=== PATIENT | male | born 1975 | race Caucasian/White ===

== ENCOUNTER → 2016-11-22 | Outpatient (CLI) | payer MEDICAID ==
[~2016-11-22] MED LIST: AMLODIPINE BES10 MG PO; BUPROPION HCL200 M1 PO; BUSPIRONE HCL15 MG PO; CYCLOBENZAPRINE10 M1 PO; HYDROXYZINE PAM50 MG PO; KEFLEX 500MG.500 MG PO; LOPRESSOR 25MG.25 MG PO; LORTAB 5/500 501 TAB PO; PROMETHAZINE12.5 M1 PO; RANITIDINE 150150 MG PO; SERTRALINE 100100 MG PO; VICODIN 5/500 T1 TAB PO; VOLTAREN75 MG PO
== END ==
LOC: RT 12:47
DX: J44.9 Chronic obstructive pulmonary disease, unspecified (principal)

== ENCOUNTER 2017-07-19 15:54 | Observation (INO) | payer MEDICAID ==
[~2017-07-19] VITALS: Ht 170.2 cm; Wt 103.6 kg
[2017-07-19] MEDS ORDERED: GABAPENTIN300 MG PO (16:01)
[2017-07-19 16:20] LABS: LYMPH # 3.6 K/mm3 (0.7-4.5); LYMPH % 24.6 % (10-50)
[2017-07-19 16:23] LABS: HEMOGLOBIN 15.1 g/dL (14.1-18.0)
--- NOTE | 2017-07-19 16:26 | Emergency Room Report ---
History of Present Illness Time Seen by [id number] Presenting Problem in Triage Pt arrived:Walked Presenting Problem:CHEST PAIN BEGAN 1 WEEK AGO, SAW DR. 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 N Clinical Suspician of Infection? N Mental Status: 1 - Regular (Normal Baseline) Sepsis Risk:Possible Sepsis Risk Have you (or family members/close friends) recently traveled outside the [place]? N If Yes, where/when: Have you had exposure to infectious disease within the past month? N TB? Other? Specify: Patient reports progressive BONILLA when walking up steeps, seems worse over the past week; sent to ED by PCP for further evaluation. Reports leg edema bilaterally x one month w/o claudication. No fever or sputum production; reports remote hx of [place], states had an abnormal stress test in his 20's; has heavy tob use; has HTN but denies hyperlipidemia; not diabetic. No fever or cough. PCP has requested evaluation with admission and has already consulted cardiology service per report relayed to this MD by our staff, who received a courtesy call prior to patient arrival. ALLERGIES Coded Allergies: penicillin G (Intermediate, I-HIVES 02/01/16) Home Medications Reported Medications Hydroxyzine Pamoate 50 MG PO DAILY #30 RANITIDINE HCL (Ranitidine HCl) 150 MG PO QHS #60 Buspirone Hcl 15 MG PO BID #120 BUPROPION HCL (Bupropion HCl Sr) 200 MG PO QHS #60 Metoprolol Tartrate (Lopressor) 12.5 MG PO BID #30 Amlodipine Besylate (Amlodipine Besylate) 10 MG PO BID #30 Sertraline Hydrochloride (Sertraline 100MG) 100 MG PO DAILY #30 Gabapentin (Gabapentin 300MG) 300 MG PO QHS History Medical History General Angina: Yes [place]: No Hypertension? Yes Hyperlipidemia? No COPD? No Asthma? Yes CVA? No Seizures? No Diabetes? No GB Disease: No MRSA? No TB? No Anxiety? Yes Depression? Yes Cancer? No Immunization Hx DT/Tetanus NOT SURE Surgical Hx Previous Surgery?Y APPENDECTOMY Oral Surgery Family History Family Hx Hypertension Yes Cancer Yes Social History Smoking Hx Smoker: Current Every Day Smoker Tobacco: Yes Type Cigarettes Packs/day < 1 Pack Alcohol Alcohol: No Review of Systems All Other Systems Reviewed and Negative Respiratory see HPI Musculoskeletal see HPI Physical Exam Vital Signs Vital Signs Date Time Temp Pulse Resp B/P Pulse O2 O2 Flow FiO2 Ox Delivery Rate 07/19 1836 95 07/19 183 97.9 95 22 161/65 07/19 1836 99 ROOM AIR 07/19 183 97.9 95 22 161/65 99 ROOM AIR 07/19 1816 98.7 99 20 148/68 98 07/19 1813 99 20 148/68 98 07/19 1715 98 20 148/68 100 07/19 1555 98.7 106 20 100 General Appearance normal appearance, WD/WN, no apparent distress, obese Eye Exam - bilateral eye normal exam, bilateral eye PERRL, bilateral eye EOMI Neck normal inspection, non-tender, supple, full range of motion Respiratory Status Yes: trachea midline, chest symmetrical, non tender chest. No: respiratory distress, tender on palpation, use of accessory muscles, pain on inspiration, pain on expiration, productive cough, non productive cough. Lung Sounds bilateral: normal breath sounds, lungs clear. Cardiovascular normal exam, regular rate/rhythm, no peripheral edema, no gallop, no JVD, no murmur, no rub, normal peripheral pulses Gastrointestinal normal bowel sounds, normal exam, non tender, soft, no organomegaly, no pulsatile mass, no guarding, no rebound Extremities non-tender, normal range of motion, no calf tenderness, pedal edema Strength 5 Upper Ext (L), 5 Upper Ext (R), 5 Lower Ext (L), 5 Lower Ext (R) Neurologic alert, normal exam, no motor/sensory deficits, oriented x 3 Glascow Coma Scale Glascow Coma Scale Response Value EYE response: 4 Spontaneously 4 MOTOR response: 6 OBEYS 6 VERBAL response: 5 Oriented & Converses 5 Total 15 Skin intact, normal color, warm/dry Medical Decision Making LABS/Meds/Orders Pt receiving controlled substance in ED? No Results/Orders Laboratory Tests 07/19/17 1600: Sodium 139, Potassium 3.8, Chloride 102, Carbon Dioxide 28, BUN 15, Creatinine 1.4 H, Estimated Creat Clear 108, Estimated GFR (MDRD) 56, Glucose 105, Calcium 8.8, Total Bilirubin 0.6, AST 23, ALT 34, Alkaline Phosphatase 90, Creatine Kinase 190, CK-MB (CK-2) Rel Index 0.7, CK and CKMB Interp 1.4, Troponin I < 0.02, B-Natriuretic Peptide 22, Total Protein 8.0, Albumin 4.0, Globulin 4.0 H, Albumin/Globulin Ratio 1.0 L, D-Dimer < 100, WBC 14.8 H, RBC 4.98, Hgb 15.1, Hct 43.0, MCV 86.4, RDW 13.9, Plt Count 307, MPV 7.1 L, Gran % 62.9, Gran # 9.3 H, Lymphocytes % 24.6, Monocytes % 7.9, Eosinophils % 3.7, Basophils % 0.9, Lymphocytes # 3.6, Monocytes # 1.2 H, Eosinophils # 0.6 H, Basophils # 0.1, PUBS MCHC 35.1, MCH 30.3 Current Medication Orders Sig/Jaclyn Start time Last Medication Dose Route Stop Time Status Admin Sertraline HCl 100 MG DAILY 07/20 0900 UNV PO Amlodipine Besylate 10 MG BID 07/19 2100 UNV PO Gabapentin 300 MG QHS 07/19 2100 UNV PO Metoprolol Tartrate 12.5 MG BID 07/19 2100 UNV PO Acetaminophen 650 MG Q4HP PRN 07/19 1730 UNV PO Nicotine 21 MG DAILYP PRN 07/19 1730 UNV TD Sodium Chloride 10 ML PRN PRN 07/19 1730 UNV IV Aspirin 324 MG ONCE ONE 07/19 1615 DC 07/19 PO 07/19 1616 1611 Aspirin 0 .STK-MED ONE 07/19 1609 DC .ROUTE Sodium Chloride 10 ML PRN PRN 07/19 1600 AC IV 07/20 1559 Orders Procedure Date/time Status [id number] FAT/LO CHO/NABILA 07/20 B Active DIET-2000 CALORIE ADA 07/20 B Active CBC WITH AUTO DIFF 07/20 0600 Active BASIC METABOLIC PROFILE 07/20 0600 Active Decision to admit 07/19 1729 Active D-DIMER 07/19 1631 Complete ELECTROCARDIOGRAM REQUEST 07/19 1559 Active IV SALINE LOCK 07/19 1559 Active CBC WITH AUTO DIFF 07/19 1559 Complete CARDIAC ENZYMES 07/19 1559 Complete CHEM 12 PROFILE 07/19 1559 Complete BRAIN NATRIURETIC PEPTIDE 07/19 1559 Complete ADMIT PATIENT 07/19 UNK Active 12 LEAD EKG-BESSON (INITIAL) 07/19 UNK Active PULSE OXIMETRY REQUEST 07/19 UNK Active ECHO ADULT 07/19 UNK Active VITAL SIGNS 07/19 UNK Active TIMBER TRIMMER 07/19 UNK Active IV SALINE LOCK 07/19 UNK Active CODE STATUS 07/19 UNK Active PATIENT ACTIVITY ORDER 07/19 UNK Active SPECIALTY CLINIC PHYS CONSULT 07/19 UNK Active CM/EKG CM/allergy physician Rhythm Normal Sinus Rhythm Rate 96 Ectopy No EKG rate, rhythm, no evid. of ischemic chgs, no ectopy, normal QRS, normal VT , normal EKG (Stach 104) XRAY/CT/US XRAY/CT/US XR interpretation by reviewed by me (report reviewed) Xray Results normal/NAD, no infiltrates, normal heart size, normal lung inflation olesya (report reviewed) Consult MD Physician Consult Time Called 1705 Pulmonary Embolism Score WELL'S CRITERIA FOR PE WELL'S CRITERIA FOR PE Response Value Clinical signs/symptoms of DVT NO 0 PE is #1 diagnosis or equally likely NO 0 Heart rate is > 100 NO 0 Immobile at least 3 days, or surgery in past 4 wks NO 0 Previously, obj. diagnosed PE or DVT NO 0 Hemoptysis NO 0 Total 0 Departure Departure Time of Disposition 1715 Disposition Still a Patient Clinical Impression Primary Impression: BONILLA (dyspnea on exertion) Condition STABLE Referrals Maxime AVILA,Wes Gupta (Family) ED Critical Care Critical Care No at 2012
--- NOTE | 2017-07-19 16:26 | Emergency Room Report ---
History of Present Illness Time Seen by [id number] Presenting Problem in Triage Pt arrived:Walked Presenting Problem:CHEST PAIN BEGAN 1 WEEK AGO, SAW DR. 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 N Clinical Suspician of Infection? N Mental Status: 1 - Regular (Normal Baseline) Sepsis Risk:Possible Sepsis Risk Have you (or family members/close friends) recently traveled outside the [place]? N If Yes, where/when: Have you had exposure to infectious disease within the past month? N TB? Other? Specify: Patient reports progressive BONILLA when walking up steeps, seems worse over the past week; sent to ED by PCP for further evaluation. Reports leg edema bilaterally x one month w/o claudication. No fever or sputum production; reports remote hx of [place], states had an abnormal stress test in his 20's; has heavy tob use; has HTN but denies hyperlipidemia; not diabetic. No fever or cough. PCP has requested evaluation with admission and has already consulted cardiology service per report relayed to this MD by our staff, who received a courtesy call prior to patient arrival. ALLERGIES Coded Allergies: penicillin G (Intermediate, I-HIVES 02/01/16) Home Medications Reported Medications Hydroxyzine Pamoate 50 MG PO DAILY #30 RANITIDINE HCL (Ranitidine HCl) 150 MG PO QHS #60 Buspirone Hcl 15 MG PO BID #120 BUPROPION HCL (Bupropion HCl Sr) 200 MG PO QHS #60 Metoprolol Tartrate (Lopressor) 12.5 MG PO BID #30 Amlodipine Besylate (Amlodipine Besylate) 10 MG PO BID #30 Sertraline Hydrochloride (Sertraline 100MG) 100 MG PO DAILY #30 Gabapentin (Gabapentin 300MG) 300 MG PO QHS History Medical History General Angina: Yes [place]: No Hypertension? Yes Hyperlipidemia? No COPD? No Asthma? Yes CVA? No Seizures? No Diabetes? No GB Disease: No MRSA? No TB? No Anxiety? Yes Depression? Yes Cancer? No Immunization Hx DT/Tetanus NOT SURE Surgical Hx Previous Surgery?Y APPENDECTOMY Oral Surgery Family History Family Hx Hypertension Yes Cancer Yes Social History Smoking Hx Smoker: Current Every Day Smoker Tobacco: Yes Type Cigarettes Packs/day < 1 Pack Alcohol Alcohol: No Review of Systems All Other Systems Reviewed and Negative Respiratory see HPI Musculoskeletal see HPI Physical Exam Vital Signs Vital Signs Date Time Temp Pulse Resp B/P Pulse O2 O2 Flow FiO2 Ox Delivery Rate 07/19 1836 95 07/19 183 97.9 95 22 161/65 07/19 1836 99 ROOM AIR 07/19 183 97.9 95 22 161/65 99 ROOM AIR 07/19 1816 98.7 99 20 148/68 98 07/19 1813 99 20 148/68 98 07/19 1715 98 20 148/68 100 07/19 1555 98.7 106 20 100 General Appearance normal appearance, WD/WN, no apparent distress, obese Eye Exam - bilateral eye normal exam, bilateral eye PERRL, bilateral eye EOMI Neck normal inspection, non-tender, supple, full range of motion Respiratory Status Yes: trachea midline, chest symmetrical, non tender chest. No: respiratory distress, tender on palpation, use of accessory muscles, pain on inspiration, pain on expiration, productive cough, non productive cough. Lung Sounds bilateral: normal breath sounds, lungs clear. Cardiovascular normal exam, regular rate/rhythm, no peripheral edema, no gallop, no JVD, no murmur, no rub, normal peripheral pulses Gastrointestinal normal bowel sounds, normal exam, non tender, soft, no organomegaly, no pulsatile mass, no guarding, no rebound Extremities non-tender, normal range of motion, no calf tenderness, pedal edema Strength 5 Upper Ext (L), 5 Upper Ext (R), 5 Lower Ext (L), 5 Lower Ext (R) Neurologic alert, normal exam, no motor/sensory deficits, oriented x 3 Glascow Coma Scale Glascow Coma Scale Response Value EYE response: 4 Spontaneously 4 MOTOR response: 6 OBEYS 6 VERBAL response: 5 Oriented & Converses 5 Total 15 Skin intact, normal color, warm/dry Medical Decision Making LABS/Meds/Orders Pt receiving controlled substance in ED? No Results/Orders Laboratory Tests 07/19/17 1600: Sodium 139, Potassium 3.8, Chloride 102, Carbon Dioxide 28, BUN 15, Creatinine 1.4 H, Estimated Creat Clear 108, Estimated GFR (MDRD) 56, Glucose 105, Calcium 8.8, Total Bilirubin 0.6, AST 23, ALT 34, Alkaline Phosphatase 90, Creatine Kinase 190, CK-MB (CK-2) Rel Index 0.7, CK and CKMB Interp 1.4, Troponin I < 0.02, B-Natriuretic Peptide 22, Total Protein 8.0, Albumin 4.0, Globulin 4.0 H, Albumin/Globulin Ratio 1.0 L, D-Dimer < 100, WBC 14.8 H, RBC 4.98, Hgb 15.1, Hct 43.0, MCV 86.4, RDW 13.9, Plt Count 307, MPV 7.1 L, Gran % 62.9, Gran # 9.3 H, Lymphocytes % 24.6, Monocytes % 7.9, Eosinophils % 3.7, Basophils % 0.9, Lymphocytes # 3.6, Monocytes # 1.2 H, Eosinophils # 0.6 H, Basophils # 0.1, PUBS MCHC 35.1, MCH 30.3 Current Medication Orders Sig/Jaclyn Start time Last Medication Dose Route Stop Time Status Admin Sertraline HCl 100 MG DAILY 07/20 0900 UNV PO Amlodipine Besylate 10 MG BID 07/19 2100 UNV PO Gabapentin 300 MG QHS 07/19 2100 UNV PO Metoprolol Tartrate 12.5 MG BID 07/19 2100 UNV PO Acetaminophen 650 MG Q4HP PRN 07/19 1730 UNV PO Nicotine 21 MG DAILYP PRN 07/19 1730 UNV TD Sodium Chloride 10 ML PRN PRN 07/19 1730 UNV IV Aspirin 324 MG ONCE ONE 07/19 1615 DC 07/19 PO 07/19 1616 1611 Aspirin 0 .STK-MED ONE 07/19 1609 DC .ROUTE Sodium Chloride 10 ML PRN PRN 07/19 1600 AC IV 07/20 1559 Orders Procedure Date/time Status [id number] FAT/LO CHO/NABILA 07/20 B Active DIET-2000 CALORIE ADA 07/20 B Active CBC WITH AUTO DIFF 07/20 0600 Active BASIC METABOLIC PROFILE 07/20 0600 Active Decision to admit 07/19 1729 Active D-DIMER 07/19 1631 Complete ELECTROCARDIOGRAM REQUEST 07/19 1559 Active IV SALINE LOCK 07/19 1559 Active CBC WITH AUTO DIFF 07/19 1559 Complete CARDIAC ENZYMES 07/19 1559 Complete CHEM 12 PROFILE 07/19 1559 Complete BRAIN NATRIURETIC PEPTIDE 07/19 1559 Complete ADMIT PATIENT 07/19 UNK Active 12 LEAD EKG-BESSON (INITIAL) 07/19 UNK Active PULSE OXIMETRY REQUEST 07/19 UNK Active ECHO ADULT 07/19 UNK Active VITAL SIGNS 07/19 UNK Active NEONATAL ICU COORDINATOR 07/19 UNK Active IV SALINE LOCK 07/19 UNK Active CODE STATUS 07/19 UNK Active PATIENT ACTIVITY ORDER 07/19 UNK Active SPECIALTY CLINIC PHYS CONSULT 07/19 UNK Active CM/EKG CM/pharmacy affairs assistant Rhythm Normal Sinus Rhythm Rate 96 Ectopy No EKG rate, rhythm, no evid. of ischemic chgs, no ectopy, normal QRS, normal ND , normal EKG (Stach 104) XRAY/CT/US XRAY/CT/US XR interpretation by reviewed by me (report reviewed) Xray Results normal/NAD, no infiltrates, normal heart size, normal lung inflation olesya (report reviewed) Consult MD Physician Consult Time Called 1705 Pulmonary Embolism Score WELL'S CRITERIA FOR PE WELL'S CRITERIA FOR PE Response Value Clinical signs/symptoms of DVT NO 0 PE is #1 diagnosis or equally likely NO 0 Heart rate is > 100 NO 0 Immobile at least 3 days, or surgery in past 4 wks NO 0 Previously, obj. diagnosed PE or DVT NO 0 Hemoptysis NO 0 Total 0 Departure Departure Time of Disposition 1715 Disposition Still a Patient Clinical Impression Primary Impression: BONILLA (dyspnea on exertion) Condition STABLE Referrals Maxime AVILA,Wes Gupta (Family) ED Critical Care Critical Care No at 2012
[2017-07-19 16:39] LABS: BUN 15 mg/dL (7-18); GFR (ESTIMATED) 56 ML/MIN (>60)
--- NOTE | 2017-07-19 17:08 | RADIOLOGY REPORT PS360 ---
CHEST(2 VIEWS-NOT PORTABLE) HISTORY: Chest pain HX OF CHF ORDERING PHYSICIAN: Silvia Gonzalez MD PATIENT AGE: 41 years COMPARISON: 02/27/2014 FINDINGS: The cardiomediastinal silhouette and pulmonary vascularity are within normal limits. The lungs are clear without infiltrates, suspicious nodules, or pleural effusions. No acute bony abnormalities. IMPRESSION: Negative chest, no acute finding
[2017-07-19 18:36] VITALS: BP 161/65
[2017-07-19 19:25] VITALS: BP 161/65
[2017-07-19 19:40] VITALS: BP 133/83
[2017-07-19 23:53] VITALS: BP 137/69
[2017-07-20 04:21] VITALS: BP 129/58
--- NOTE | 2017-07-20 07:28 | PHARMACY CLINIC NOTE ---
Patient Demographics Patient Demographics Admission date: 07/19/17 Date: 07/20/17 Time: 0728 Allergies Coded Allergies: penicillin G (Intermediate, I-HIVES 02/01/16) HEIGHT- FT: 5 IN: 7.00 [id number] VTE General Information Labs: Laboratory Tests 07/19 1600 Hematology Hgb (14.1 - 18.0 g/dL) 15.1 Hct (42.0 - 52.0 %) 43.0 Plt Count (142 - 424 K/mm3) 307 Disclaimer The following section includes nursing documentation that has been pulled in for pharmacy review. Patient's VTE score: 3 Patient's VTE Risk: LOW RISK Clinical trial participant? No VTE prophylaxis [id number] VTE prophylaxis ordered? Yes Type of prophylaxis/treatment: SCOTT at 0728
[2017-07-20 08:00] VITALS: BP 127/87
[2017-07-20 08:30] LABS: HEMOGLOBIN 15.7 g/dL (14.1-18.0); LYMPH # 3.6 K/mm3 (0.7-4.5); LYMPH % 27.8 % (10-50)
--- NOTE | 2017-07-20 08:40 | CONSULT NOTE ---
Standard Demographics Patient Demo Date of Consultation: 07/20/17 Referring Provider: Jeromy Swartz MD Reason for Consultation: BONILLA, chest pain PRIMARY DIAGNOSIS: SOB Problem list Problem list: 1. Tobacco use since age 16 A. Asthma 2. Hypertension 3. Unknown cholesterol status 4. Obesity 5. History of traumatic injuries 6. Reported history of abnormal stress test in his late 20s without further evaluation. 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 He was using amphetamines at that time to stay awake to work third shift. 7. History of marijuana use History of present illness: History of present illness: 41-year-old white female with history of hypertension and tobacco use admitted through the emergency department for one month history of increasing shortness of breath and lower extremity edema. Patient relates out of his medications for at least one week with noticeable chest tightness upon exertion (walking up one flight of steps or walking one block) which prompted visit to Dr. Swartz's office yesterday. Patient was referred to the emergency department for further evaluation. He was admitted overnight and started on IV diuretics. He has diuresed about 8 pounds so far. States he is breathing better and his legs are less swollen. Troponins normal 1 overnight. CXR without CHF and BNP normal. D- dimer normal. Electrocardiogram is sinus rhythm with borderline RIGHT axis deviation and no acute ST segment changes. Cardiology consulted for evaluation. Past Medical History: General: Hypertension Yes CVA No Seizures No TB No COPD No Asthma Yes Diabetes No Angina Yes ND No Hyperlipidemia No Urinary No Cancer No Rheumatic H.D. No Ulcers No MRSA No GB Disease No Other ANXIETY Past Surgical HX: Previous Surgery?Y APPENDECTOMY Oral Surgery Allergies Coded Allergies: penicillin G (Intermediate, I-HIVES 02/01/16) Home medications: Reported Medications Metoprolol Tartrate (Lopressor) 12.5 MG PO BID #30 TAB Gabapentin (Gabapentin 300MG) 300 MG PO QHS Hydroxyzine Pamoate 50 MG PO DAILY #30 RANITIDINE HCL (Ranitidine HCl) 150 MG PO QHS #60 Buspirone Hcl 15 MG PO BID #120 BUPROPION HCL (Bupropion HCl Sr) 200 MG PO QHS #60 Amlodipine Besylate (Amlodipine Besylate) 10 MG PO BID #30 Sertraline Hydrochloride (Sertraline 100MG) 100 MG PO DAILY #30 Current Medications: Current Medications Sertraline HCl 100 MG DAILY PO Amlodipine Besylate 10 MG BID PO Gabapentin 300 MG QHS PO Metoprolol Tartrate 12.5 MG BID PO Furosemide 40 MG ONCE ONE IV (DC) Amlodipine Besylate 0 .STK-MED ONE .ROUTE (DC) Acetaminophen 650 MG Q4HP PRN PO Nicotine 21 MG DAILYP PRN TD Sodium Chloride 10 ML PRN PRN IV Aspirin 324 MG ONCE ONE PO (DC) Aspirin 0 .STK-MED ONE .ROUTE (DC) Sodium Chloride 10 ML PRN PRN IV Immunization HX DT/Tetanus NOT SURE Pneumonia Never Had TB Test in last year No Family history Family HX Family Hx Insignificant No Diabetes Yes CAD No Hypertension Yes Hyperlipidemia Yes Cancer Yes TB No Social Hx: Smoking HX Tobacco Yes Type Cigarettes Packs/day < 1 PACK Alcohol Alcohol: Yes How much do you drink RARELY For how long Longer Than 5 Years When was your last drink Greater Than 72 Hours Ago Hx of Drug Use Drug Use? No Patient's support system is fair Review of systems: Constitutional No: no symptoms reported. Respiratory see HPI, orthopnea, SOB with excertion. Cardiovascular see HPI, chest pain Gastrointestinal/Abdominal No no symptoms reported Genitourinary No: no symptoms reported. Musculoskeletal back pain. Neurological No: no symptoms reported. Exam: Admission Vital Signs: 1ST Vital Signs Result Date Time Pulse Ox 100 07/19 1555 Temp 98.7 07/19 1555 Pulse 106 07/19 1555 Resp 20 07/19 1555 B/P 148/68 07/19 1715 O2 Delivery ROOM AIR 07/19 1836 Last Vital Signs: Vital Signs Result Date Time Pulse Ox 95 07/20 0421 B/P 129/58 07/20 0421 O2 Delivery ROOM AIR 07/20 421 Temp 97.2 07/20 042 Pulse 89 07/20 0421 Resp 16 07/20 042 Exam General appearance: alert, awake, no acute distress Neck: no carotid bruit, no JVD Cardiovascular: regular rate & rhythm, no murmur Respiratory: clear to auscultation, good air movement ABD: soft, no tenderness Extremities: trace pretibial edema with good dorsalis pedis pulses. 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 II-XII nml as tested, intact, oriented Laboratory data: Laboratory Tests 07/20/17 0623: Sodium 138, Potassium 3.6, Chloride 100, Carbon Dioxide 29, BUN 16, Creatinine 1.4 H, Estimated Creat Clear 102, Estimated GFR (MDRD) 56, Glucose 102, Calcium 9.2, WBC 13.1 H, RBC 5.10, Hgb 15.7, Hct 44.5, MCV 87.2, RDW 13.8, Plt Count 321, MPV 7.5, Gran % 59.7, Gran # 7.8, Lymphocytes % 27.8, Monocytes % 7.1, Eosinophils % 4.5, Basophils % 1.0, Lymphocytes # 3.6, Monocytes # 0.9, Eosinophils # 0.6 H, Basophils # 0.1, PUBS MCHC 35.3, MCH 30.8 07/19/17 1600: Sodium 139, Potassium 3.8, Chloride 102, Carbon Dioxide 28, BUN 15, Creatinine 1.4 H, Estimated Creat Clear 108, Estimated GFR (MDRD) 56, Glucose 105, Calcium 8.8, Total Bilirubin 0.6, AST 23, ALT 34, Alkaline Phosphatase 90, Creatine Kinase 190, CK-MB (CK-2) Rel Index 0.7, CK and CKMB Interp 1.4, Troponin I < 0.02, B-Natriuretic Peptide 22, Total Protein 8.0, Albumin 4.0, Globulin 4.0 H, Albumin/Globulin Ratio 1.0 L, D-Dimer < 100, WBC 14.8 H, RBC 4.98, Hgb 15.1, Hct 43.0, MCV 86.4, RDW 13.9, Plt Count 307, MPV 7.1 L, Gran % 62.9, Gran # 9.3 H, Lymphocytes % 24.6, Monocytes % 7.9, Eosinophils % 3.7, Basophils % 0.9, Lymphocytes # 3.6, Monocytes # 1.2 H, Eosinophils # 0.6 H, Basophils # 0.1, PUBS MCHC 35.1, MCH 30.3 Plan: Assessment: 1. Dyspnea on exertion with chest tightness. Troponins normal 1 and electrocardiogram without acute changes. D-dimer and BNP normal. MITA score of 2 (recurrent chest tightness, cardiac risk factors). Preliminary echocardiogram this morning is normal ejection fraction without significant valve disease. We' ll proceed with exercise Myoview or Lexiscan Myoview if patient is unable to exercise adequately. 2. Hypertension 3. Tobacco use, cessation advised 4. Unknown cholesterol status, check lipids Recommendations: See above. at 0840
[2017-07-20 09:00] VITALS: BP 127/87
[2017-07-20] MEDS ORDERED: PANTOPRAZOLE SO40 MG PO (10:31)
[2017-07-20] MEDS ORDERED: ALBUTEROL-200 PUFFS/ IH (10:32)
--- NOTE | 2017-07-20 15:21 | RADIOLOGY REPORT PS360 ---
CARDIOLITE SPECT MYOCARDIAL PERFUSION SCAN, REST AND STRESS: EXERCISE STRESS [facility] REVIEW QGS EF AND WALL MOTION EVALUATION: QPS - PERFUSION EVALUATION HISTORY: chest tightness..tobacco use..htn DOSE: 11.50 mCi technetium 99m mibi intravenously at rest followed by 32.4 mCi technetium 99m mibi following the intravenous ministration of 0.4 mg of Lexiscan. Resting blood pressure is 162/93. Stress blood pressure 170/87. FINDINGS: Ejection fraction is calculated to be 59%. Uniform myocardial activity with both stress and rest. Gated images calculate an ejection fraction of 59% normal wall motion IMPRESSION: No scintigraphic evidence of Lexiscan-induced myocardial ischemia with normal ejection fraction normal wall motion
--- NOTE | 2017-07-20 15:21 | RADIOLOGY REPORT PS360 ---
CARDIOLITE SPECT MYOCARDIAL PERFUSION SCAN, REST AND STRESS: EXERCISE STRESS [facility] REVIEW QGS EF AND WALL MOTION EVALUATION: QPS - PERFUSION EVALUATION HISTORY: chest tightness..tobacco use..htn DOSE: 11.50 mCi technetium 99m mibi intravenously at rest followed by 32.4 mCi technetium 99m mibi following the intravenous ministration of 0.4 mg of Lexiscan. Resting blood pressure is 162/93. Stress blood pressure 170/87. FINDINGS: Ejection fraction is calculated to be 59%. Uniform myocardial activity with both stress and rest. Gated images calculate an ejection fraction of 59% normal wall motion IMPRESSION: No scintigraphic evidence of Lexiscan-induced myocardial ischemia with normal ejection fraction normal wall motion
[2017-07-20 16:10] VITALS: BP 156/79
--- NOTE | 2017-07-20 16:59 | Discharge Summary Standard ---
Demographics: Admit date: 07/20/17 Chief complaint: chest pain PRIMARY DIAGNOSIS: SOB Allergies: Coded Allergies: penicillin G (Intermediate, I-HIVES 02/01/16) History of present illness: History of present illness: 41-year-old white female with history of hypertension and tobacco use admitted through the emergency department for one month history of increasing shortness of breath and lower extremity edema. Patient relates out of his medications for at least one week with noticeable chest tightness upon exertion (walking up one flight of steps or walking one block) which prompted visit to Dr. Swartz's office yesterday. Patient was referred to the emergency department for further evaluation. He was admitted overnight and started on IV diuretics. He has diuresed about 8 pounds so far. States he is breathing better and his legs are less swollen. Troponins normal 1 overnight. CXR without CHF and BNP normal. D- dimer normal. Electrocardiogram is sinus rhythm with borderline RIGHT axis deviation and no acute ST segment changes. Cardiology consulted for evaluation. Past medical history: Family HX Diabetes Yes CAD No Hypertension Yes Hyperlipidemia Yes Cancer Yes TB No Immunization HX DT/Tetanus NOT SURE Pneumonia Never Had TB Test in last year No General Angina: Yes [place]: No Hypertension? Yes Hyperlipidemia? No COPD? No Asthma? Yes CVA? No Seizures? No Diabetes? No GB Disease: No MRSA? No TB? No Anxiety? Yes Depression? Yes Cancer? No Past Surgical HX Previous Surgery?Y APPENDECTOMY Oral Surgery Current home meds: Reported Medications Hydroxyzine Pamoate 50 MG PO QHS #30 CAPSULE Buspirone Hcl 15 MG PO BID #120 TAB BUPROPION HCL (Bupropion HCl Sr) 200 MG PO BID #60 TAB Metoprolol Tartrate (Lopressor) 12.5 MG PO BID #30 TAB Amlodipine Besylate (Amlodipine Besylate) 10 MG PO DAILY #30 TAB Gabapentin (Gabapentin 300MG) 300 MG PO QHS Pantoprazole Sodium (Pantoprazole 40MG) 40 MG PO DAILY Albuterol (Albuterol-Hfa Inhaler) 2 PUFF IH Q4HP PRN BREATHING RANITIDINE HCL (Ranitidine HCl) 150 MG PO QHS #60 Sertraline Hydrochloride (Sertraline 100MG) 100 MG PO DAILY #30 Social Hx: Smoking HX Tobacco Yes Type Cigarettes Packs/day < 1 PACK Alcohol Alcohol: Yes How much do you drink RARELY For how long Longer Than 5 Years When was your last drink Greater Than 72 Hours Ago Hx of Drug Use Drug Use? No Review of systems: Constitutional see HPI, weakness. Respiratory No: no symptoms reported. Cardiovascular see HPI, chest pain Gastrointestinal/Abdominal No no symptoms reported Genitourinary No: no symptoms reported. Musculoskeletal No: no symptoms reported. Neurological No: see HPI. Exam: Lab data for last 24 hours: Laboratory Tests 07/20/17 0628: Triglycerides 390 H, Cholesterol 192, LDL Cholesterol 75.0, VLDL Cholesterol 78.0 H, HDL Cholesterol 39.0 L 07/20/17 0623: Sodium 138, Potassium 3.6, Chloride 100, Carbon Dioxide 29, BUN 16, Creatinine 1.4 H, Estimated Creat Clear 102, Estimated GFR (MDRD) 56, Glucose 102, Calcium 9.2, WBC 13.1 H, RBC 5.10, Hgb 15.7, Hct 44.5, MCV 87.2, RDW 13.8, Plt Count 321, MPV 7.5, Gran % 59.7, Gran # 7.8, Lymphocytes % 27.8, Monocytes % 7.1, Eosinophils % 4.5, Basophils % 1.0, Lymphocytes # 3.6, Monocytes # 0.9, Eosinophils # 0.6 H, Basophils # 0.1, PUBS MCHC 35.3, MCH 30.8 Admission vital signs: 1ST Vital Signs Result Date Time Pulse Ox 100 07/19 1555 Temp 98.7 07/19 1555 Pulse 106 07/19 1555 Resp 20 07/19 1555 B/P 148/68 07/19 1715 O2 Delivery ROOM AIR 07/19 1836 Exam General appearance: normal appearance, active, no acute distress Eyes: normal exam ENT: normal exam, mucous membranes moist Neck: normal inspection, no carotid bruit, full range of motion Cardiovascular: normal exam, regular rate & rhythm, no murmur, normal peripheral pulses Respiratory: normal exam ABD: normal exam, normal bowel sounds, soft Genitourinary: normal voiding & quantity Extremities: normal exam, moves all Musculoskeletal: normal exam Skin: normal exam, intact Neuro: normal exam, alert, intact Hospital Course Hospital Course: chest pain- cardiac work up neg, cardiology consult see note stress test: IMPRESSION: No scintigraphic evidence of Lexiscan-induced myocardial ischemia with normal ejection fraction normal wall motion Medications Medications: Discharge meds are as noted. Follow up Follow up in office in: 7 DAYS with: Maxime AVILA,Wes Gupta at [phone]
[2017-07-20 19:29] VITALS: BP 148/84
--- NOTE | 2017-07-21 16:49 | RADIOLOGY REPORT PS360 ---
PROCEDURE: 2-D M-mode and color Doppler study INDICATIONS FOR THE TEST: Chest pain + COPD Heart Murmur Tobacco Smoking+ Palpitations Fatigue Syncope Edema+ Hypertension Diabetes Mellitus Rheumatic Fever SOB+[place] Obesity Hyperlipidemia Family History HD Additional History PATIENT INFORMATION HEIGHT: 66 WEIGHT:243 GENDER: Male B/P: 2-D/M-MODE INTERPRETATION: 2-D MEASUREMENTS OBSERVED VALUES IN CMS Right Ventricular Dimension (RVDd) 2.0 Interventricular Septum (Thickness)(IVsd) 1.2 Left Ventricular Internal Dimensions(LVIDd) 4.5 Left Ventricular Posterior Wall (Thickness)(LVPWd) 1.2 Aortic Root 2.9 Aortic Cusp Separation 2.0 Left Atrial Dimensions (LAD) 4.1 2D 1. Left atrium is mildly enlarged, left ventricle is normal size, there is mild concentric left ventricular hypertrophy present, visually estimated ejection fraction of 55% with no obvious regional wall motion abnormality. 2. The right atrium and right ventricle are normal size and contractility. 3. The aortic valve is minimally thickened and fibrosed. 4. The mitral and tricuspid valve are grossly normal. 5. The pulmonic valve is poorly visualized. 6. No significant pericardial effusion noted. DOPPLER INTERROGATION: Doppler interrogation of the aortic mitral and tricuspid valve reveals presence of mild mitral and tricuspid regurgitation, tricuspid and jet velocity insufficient for calculation of the right ventricular systolic pressure, diastolic parameters are inconclusive. Inferior vena cava is not well visualized. CONCLUSION: 1. Mildly enlarged left atrium, normal left ventricular size, mild concentric left ventricular hypertrophy, visually estimated ejection fraction of 55% with no obvious regional wall motion abnormality, diastolic parameters are inconclusive. 2. Mild mitral and tricuspid regurgitation. 3. No significant pericardial effusion noted.
== END 2017-07-20 21:00 | disposition home or self-care (01) ==
LOC: ER 15:54 → 2ND 17:20 → ER 17:20 → 2ND 18:25
PROVIDERS: Emergency Medicine
DX: R06.09 Other forms of dyspnea (principal); I10 Essential (primary) hypertension; Z72.0 Tobacco use
CPT/HCPCS: A9502; G0378; J2785